=== PATIENT | female | born 1950 | race Caucasian/White ===

== ENCOUNTER 2016-12-17 14:39 | Emergency (ER) | payer BC, OTHER ==
[~2016-12-17] VITALS: Ht 139.7 cm; Wt 54.4 kg
[2016-12-17 16:46] LABS: EOSINOPHIL (%) 0.1 % (0-5); HEMATOCRIT 23.5 % (36.0-46.0); IMMATURE GRANULOCYTE (%) 0.5 % (0.0-0.7); INSTRUMENT ABS NEUTROPHIL CT 6.7 K/uL; LYMPHOCYTE COUNT 1.5 K/uL (1.0-2.8); MCH 29.5 PG (29.0-34.0); MCV 86.7 FL (83-99); MEAN PLAT.VOLUME 8.8 uM^3 (9.5-12.4); MONOCYTE (%) 7.2 % (3-12); MONOCYTE COUNT 0.6 K/uL (0-0.8); NEUTROPHIL (%) 74.9 % (45-76); NEUTROPHIL COUNT 6.7 K/uL (1.8-6.4); PLATELET COUNT 250 K/uL (156-360); RBC DIS.WIDTH-CV 13.5 % (11.8-14.6); RBC DIS.WIDTH-SD 42.3 % (39-53); RED BLOOD COUNT 2.71 M/uL (3.80-5.20); WHITE BLOOD COUNT 8.9 K/uL (4.1-10.2)
[2016-12-17 16:51] LABS: INTER. NORMALIZED RATIO 1.2; PROTHROMBIN TIME 13.1 SEC (10.2-12.9)
[2016-12-17 16:53] LABS: PTT 28.5 SEC (25-37)
[2016-12-17 16:54] LABS: CHLORIDE 94 mEq/L (99-109); POTASSIUM 3.8 mEq/L (3.7-5.4); SODIUM 131 mEq/L (136-147)
[2016-12-17 16:56] LABS: GLUCOSE 109 mg/dL (70-99)
[2016-12-17 16:58] LABS: ANION GAP 14 MEQ/L (2-14)
[2016-12-17 17:00] LABS: GFR ESTIMATE (CALCULATED) > 59 mL/min/
[2016-12-17 17:01] LABS: UREA NITROGEN (BUN) 5 mg/dL (9-23)
[2016-12-17] MEDS ORDERED: PERCOCET 5/31 TABLET PO (19:39)
[2016-12-17] MEDS ORDERED: KEFLEX500 MG PO (19:39)
[2016-12-17 20:11] VITALS: BP 132/66
== END 2016-12-17 20:00 | disposition home or self-care (01) ==
LOC: EME 14:39
PROVIDERS: Emergency Medicine
DX: S80.02XA Contusion of left knee, initial encounter (principal); D64.9 Anemia, unspecified; W01.0XXA Fall on same level from slipping, tripping and stumbling without subsequent striking against object, initial encounter; I10 Essential (primary) hypertension; E78.5 Hyperlipidemia, unspecified; G89.29 Other chronic pain; M41.9 Scoliosis, unspecified; F17.200 Nicotine dependence, unspecified, uncomplicated
CPT/HCPCS: 73552; 73564; 73590; 73700; 80048; 85025; 85610; 85730; 99281; 99284